=== PATIENT | female | born 1995 | race Caucasian/White ===

== ENCOUNTER 2018-06-04 07:35 | Outpatient (CLI) | payer OTHER ==
--- NOTE | 2018-06-04 09:40 | ULT ---
HEPATIC ULTRASOUND: History: Abnormal liver function test. FINDINGS: Real-time imaging of the right upper quadrant shows the liver to measure 20.3 cm in length. There is mild increased echogenicity. The spleen measures 12.8 cm in length. The gallbladder is normal in appearance. Common duct is 3 mm. DOPPLER EVALUATION WITH SPECTRAL ANALYSIS: Normal flow pattern shown in the liver. Right kidney is normal in size and not obstructed. IMPRESSION: Borderline sized liver and spleen with mild increased echogenicity to the liver suggesting some fatty change. POS: [facility]
== END 2018-06-04 07:36 | disposition home or self-care (01) ==
LOC: ULT 07:35
PROVIDERS: ATTEND Internal Medicine Gastroenterology
DX: R94.5 Abnormal results of liver function studies (principal); R10.13 Epigastric pain; K59.00 Constipation, unspecified; K21.9 Gastro-esophageal reflux disease without esophagitis; R93.2 Abnormal findings on diagnostic imaging of liver and biliary tract
CPT/HCPCS: 76705